=== PATIENT | female | born 2000 | race Caucasian/White ===

== ENCOUNTER 2020-01-28 01:20 | Emergency (ER) | payer MEDICAID ==
[~2020-01-28] VITALS: Ht 160 cm; Wt 51.4 kg
[2020-01-28 01:22] VITALS: TEMP 97.6
[2020-01-28 07:33] VITALS: BP 110/64; PULSE 111
== END 2020-01-28 08:45 | disposition home or self-care (01) ==
LOC: COL.ER 01:20
PROVIDERS: Nurse Practitioner
DX: F10.129 Alcohol abuse with intoxication, unspecified (principal); F17.210 Nicotine dependence, cigarettes, uncomplicated; Z32.02 Encounter for pregnancy test, result negative
CPT/HCPCS: J2405; J7030